=== PATIENT | male | born 1950 | race Caucasian/White ===

== ENCOUNTER → 2016-12-11 | Outpatient (CLI) | payer OTHER ==
[~2016-12-11] VITALS: Ht 177.8 cm; Wt 85.8 kg
[~2016-12-11] MED LIST: CIPROFLOXACIN500 M1 PO; FLAGYL500 MG PO; FLOMAX0.4 MG PO; LYRICA 50 MG50 MG PO; MORPHINE SULFAT15 M3 PO
--- NOTE | ~2016-12-11 | HPC ---
[facility] [place] [address] PAIN MANAGEMENT CONSULTATION Name: IRMAMaryROHIT GERMAINE Room #: REG [facility] ScottieAlvaroÁngel#: [id number] Admission: 12/11/16 Attend Phys: Ghulam Everett DO Discharge: Date of : 50 Report #: [id number] THIS REPORT FOR: //name// CC: Jw Adamson DATE OF SERVICE: 12/11/2016 REFERRING PHYSICIAN: Dr. Darryl Phillips. CHIEF COMPLAINT: Left foot pain. HISTORY OF PRESENT ILLNESS: As you know, the patient is a 66-year-old male with longstanding history of left foot pain. The pain began after surgery at the L5-S1 level leading to footdrop. He indicates pain is at a level 6/10, daily average of 6/10, worst pain has been is 10/10. The patient has plans for EMG but has not undergone the procedure. He states pain is exacerbated with standing for any length of time, improves with rest and relaxation. The patient has been referred to our service to discuss options for treatment and to provide suggestions for therapy to his referring surgeon. He indicates no specific injury or trauma that he has had but did note that his pain was not present prior to surgery and present directly afterwards. He has been referred to our service to discuss options for treatment and provide suggestions for therapy to his referring surgeon. PAST MEDICAL HISTORY: 1. Basal cell carcinoma. 2. Benign prostatic hypertrophy. 3. Chronic intractable leg pain. PAST SURGICAL HISTORY: 1. Left hip replacement in 2000. 2. Herniorrhaphy. 3. Lumbar spine surgery. SOCIAL HISTORY: The patient denies tobacco, alcohol, IV or illicit drug use. He is an employee of a [employer] but has been in and out of work due to ongoing pain issues over the past 3 months. He is accompanied by his and son who were present in the room today. REVIEW OF SYSTEMS: Positive for decrease in appetite, wearing corrective eyewear, hearing loss with tinnitus, earaches with drainage, shortness of breath, changes in bowel movements, frequent urination, nocturia, dysuria, kidney stones, numbness and tingling sensations, nervousness, depression and [facility] [address] [place] [address] PAIN MANAGEMENT CONSULTATION Name: GABOCHANDANROHIT GERMAINE Room #: [facility]#: [id number] Admission: 12/11/16 Attend Phys: Ghulam Everett DO Discharge: Date of : 50 Report #: [id number] insomnia. All other review of systems negative per 12-point review of systems other than those listed in history of present illness. Pain impact score 56/70 indicating severe interference of daily activities secondary to pain. ALLERGIES: No known drug allergies. CURRENT MEDICATIONS: 0.4 mg once a day, pregabalin 50 mg twice a day and MSIR 15 mg 3 times a day. IMAGING DATA: No imaging available. PHYSICAL EXAMINATION: VITAL SIGNS: Blood pressure 116/77, pulse is 84, respiratory rate 14 and unlabored. The patient is 97% on room air, height 5 feet 10 inches tall, weight 189.2 pounds and BMI calculated 27.1. GENERAL: Well developed, well nourished and well hydrated 66-year-old male. He appears in no acute distress. He appears stated age, placing current pain score 6/10. HEENT: Normocephalic and atraumatic. Pupils equal, round and reactive to light. Extraocular muscles are intact. Sclerae nonicteric without injection. NEUROLOGICAL: Cranial nerves 2 through 12 grossly intact. Speech is fluent. The patient deemed a fair historian. LUNGS: Clear. No wheeze, rhonchi or rales. CARDIOVASCULAR: Regular. No appreciable gallop or rub. ABDOMEN: Soft, nontender and nondistended. Normoactive bowel sounds. EXTREMITIES: Show no clubbing, no cyanosis and no edema. MUSCULOSKELETAL: There is noted footdrop on the left when compared to the right. Strength is barely noticeable with plantar flexion, dorsiflexion of the left foot when compared to the right. Gait is antalgic favoring left lower extremity over right. ASSESSMENT: 1. Left footdrop secondary to a surgical complication. 2. Lumbar radicular symptoms. 3. Chronic intractable pain. PLAN: 1. The patient has been referred to our service by his surgery team for evaluation for left footdrop and ongoing neuropathic pain. It appears that the patient has suffered some type of nerve injury leading to the footdrop symptoms. The patient indicates that he was doing well prior to surgery. After surgery, he experienced footdrop and increasing neuropathic pain. There has been no imaging according to the patient since the surgery. He has been referred to our clinic without imaging studies, so it is difficult for us to determine the [address] [address] PAIN MANAGEMENT CONSULTATION Name: ROHIT BILLINGSLEY SR Room #: ISMA Rivera#: [id number] Admission: 12/11/16 Attend Phys: Ghulam Everett DO Discharge: Date of : 50 Report #: [id number] source of the pain he is experiencing from a neuropathic standpoint and the cause of the footdrop. I advised the patient that further imaging will be necessary. I have advised the patient an MRI of the lumbar spine will be needed. We will be sending the patient for the MRI with and without contrast to be done this next week for review of the findings upon return visit. 2. I have provided the patient a prescription for BUN and creatinine. This will be required before the MRI due to the use of contrast material and the patient's advanced age. The patient will undergo the lab draw before the MRI to confirm BUN and creatinine before initiation of the imaging study. 3. We would recommend the initiation of a neuropathic pain medication. We will give the patient Gralise pack. He will start at 300 mg and escalate the dose as directed in the pack. Once he reaches an efficacious level, he is to stabilize with that dose without further escalation. We will start the titration pack today. Once he is stable on the dose, we will be returning his care to his Surgery team for continuation of this therapy. 4. We will see the patient back in followup visit hopefully next week with the MRI completed. We have taken the liberty of contacting the [facility] technical cable jointer and I had a long discussion with the color laboratory technician today and ways that we can have the patient undergo the imaging study where he is reversed in the MRI system so that he can have his head sticking out of the gantry as the patient reports some claustrophobic issues. The patient will need only 24 minutes and 10 seconds of time easily tolerable. We do not sedate the patient's for MRIs. If he requires sedation, he will need to discuss this with his surgeon and have him admitted to the hospital of the surgeon's discretion and undergo MRI with anesthesia. He will need to contact his surgeon if he wishes to do that type of imaging study. 5. We will wait EMG findings. This is going to be required as part of the evaluation. Once the EMG is completed, we can also provide some information about the source of the patient's drop foot whether or not this is going to be something that will be recoverable . 6. We wish to thank you for the opportunity to see this patient in consultation. We will be providing suggestions for treatment and will provide the MRI requested for further evaluation to assist in your ongoing care. Again, we wish to thank you for the opportunity for us to work workweek review in regards to this patient and his ongoing condition. Once we have determined the source, we will be providing suggestions for further treatment. By: [id number] [id number] Ghulma Everett DO /viv
[2016-12-11 10:51] VITALS: BP 116/77
== END | disposition home or self-care (01) ==
LOC: PAIN 07:12
DX: M79.672 Pain in left foot (principal); N40.0 Benign prostatic hyperplasia without lower urinary tract symptoms; G89.29 Other chronic pain; Z98.890 Other specified postprocedural states; F32.9 Major depressive disorder, single episode, unspecified; M54.16 Radiculopathy, lumbar region

== ENCOUNTER → 2016-12-25 | Outpatient (CLI) | payer OTHER ==
[~2016-12-25] VITALS: Ht 177.8 cm; Wt 89.2 kg
[~2016-12-25] MED LIST changes: +GRALISE600 MG PO; +HYDROCODON-ACE1 EAC8 PO
--- NOTE | ~2016-12-25 | HPC ---
[facility] [place] [address] PAIN MANAGEMENT CONSULTATION Name: ROHIT BILLINGSLEY Room #: REG [facility] Miguel#: [id number] Admission: 12/25/16 Attend Phys: Ghulam Everett DO Discharge: Date of : 50 Report #: [id number] THIS REPORT FOR: //name// CC: Jw Everett DATE OF SERVICE: 12/25/2016 CHIEF COMPLAINT: Left foot pain. HISTORY OF PRESENT ILLNESS: As you know, the patient is a 66-year-old male with longstanding history of left foot pain. The patient states the pain began directly after surgery at the L5-S1 level leading to this left foot drop in neuropathic symptoms. At our initial visit, the patient was placing pain score 6/10, daily average of 6/10, worst pain has been is 10/10. The patient was referred to our service by his surgeon, Dr. Tashi Taveras for evaluation. We saw the patient in consultation per his request on 12/11/2016. We subsequently advised the patient to undergo MRI of the lumbar spine to determine if the source of symptoms is change in the lumbar region or whether or not injury to the nerve was sustained or this is a residual neuropathic pain from unknown source. The patient was sent for MRI, but could not undergo the imaging study without "being put completely to sleep to undergo this horrific imaging study." The patient was provided Xanax therapy, but did not wish to initiate the MRI with this medication and did not undergo the procedure. We did start him on gabapentin in the form of Gralise at last visit, he returns to discuss efficacy. ALLERGIES: No known drug allergies. CURRENT MEDICATIONS: Tamsulosin 0.4 mg once a day, Gralise 1800 mg p.o. at bedtime. SOCIAL HISTORY: The patient denies tobacco, alcohol, IV or illicit drug use. He is an employee at a [employer] company, but has been out of work due to ongoing pain issues over the last 3 months. He is unaccompanied today. IMAGING: No new imaging available. PHYSICAL EXAMINATION: VITAL SIGNS: Blood pressure 128/64, pulse 80, respiratory rate 16 and unlabored. The patient is 98% on room air, height 5 feet 10 inches tall, weight 196.6 pounds, BMI calculated at 28.2. GENERAL: Well-developed, well-nourished, well-hydrated 66-year-old male who appears his stated age. He is placing current pain score at 2-7/10. HEENT: Normocephalic, atraumatic. Pupils equal, round, reactive to light. Extraocular muscles are intact. Sclerae nonicteric without injection. [address] [address] PAIN MANAGEMENT CONSULTATION Name: ROHIT BILLINGSLEY Room #: [facility] [id number] Admission: 12/25/16 Attend Phys: Ghulam Everett DO Discharge: Date of : 50 Report #: [id number] NEUROLOGIC: Cranial nerves 2-12 grossly intact. Speech is fluent. EXTREMITIES: Show no clubbing, no cyanosis, no edema. MUSCULOSKELETAL: The patient has noted foot drop on the left when compared to the right. Strength is only noted with a little bit of plantar flexion, dorsiflexion and extensor hallucis weakness noted. Gait antalgic favoring left lower extremity over right. There is no indication of complex regional pain syndrome. ASSESSMENT: 1. Left foot drop. 2. Left lower extremity neuropathy. 3. Chronic intractable pain. PLAN: 1. The patient has been referred to our service by his surgeon, Dr. Tashi Taveras, for evaluation. We have seen the patient in consultation now twice. He has left foot drop and this needs to be further evaluated by his surgeon. We attempted to have the patient undergo MRI, but he was unable to do so as he needs to be "completely sedated and asleep" to undergo the procedure. We do not offer this option. We did contact the MRI group. They were able to place the patient in reverse position with his head and chest outside of the machine and yet with this simple alteration, the patient could not undergo the procedure. Without further information we can offer no suggestions for treatment options. He does have an EMG planned for later this month. He can follow up with his surgeon in regards to the findings of that EMG. At this point, we have tried neuropathic medication in the form of Gralise, long acting form of gabapentin. He has been on Lyrica, but did not notice improvement. In fact, he has noted no improvement with either of these medications nor has he noted improvement with any other medication. At this point, we have nothing more to offer the patient from a standpoint of treatment. We recommend that he return to see Dr. Taveras, his surgeon for further evaluation and further treatment options. 2. We wish to thank Dr. Taveras for the opportunity to see the patient in consultation. Unfortunately, at this time, we cannot offer much in the way of an opinion for treatment option as we do not know the source of the patient's foot drop and ongoing pain issues. If a nerve injury has occurred, we recommend that treatments be done from a neuropathic standpoint. These can be handled through your clinic. If the foot drop is due to unknown origin, you could consider a spinal cord stimulator treatment for neuropathic symptoms, though this would provide no improvement in the foot drop on the left side. One could also look towards the lumbar region to determine if any pathology exists that may be the source of the patient's foot drop and neuropathic symptoms. We will defer to the surgeon who performed the surgery to determine the source of the patient's symptoms. 3. At this point, we have advised the patient to wean off of the Gralise. Apparently, it is not working. Recommend the patient reduce the dosing in a stepwise fashion from 1800 mg back down to 0. He has noted no improvement with [address] [address] PAIN MANAGEMENT CONSULTATION Name: ROHIT BILLINGSLEY [facility] [id number] Admission: 12/25/16 Attend Phys: Ghulam Everett DO Discharge: Date of : 50 Report #: [id number] any of the neuropathic pain medications provided to date. These are only suggestions for treatment options. We have adjusted his medications and tried to control his symptoms. He has been unable or unwilling to undergo imaging studies, so we really have nothing more to offer the patient. We will be returning his care to Dr. Taveras and we wish him luck in gaining improvement in his function of his left lower extremity and improving his neuropathic pain. 4. We wish to thank Dr. Taveras for the referral of patient to our clinic. We will be returning his care to your capable hands. We wish him luck and we appreciate the referral. It is unfortunate we were unable to provide this patient with improvement in symptoms. Again, we wish to thank you for the opportunity to participate in his care. By: [id number] Ghulam Everett DO /nt
[2016-12-25 10:49] VITALS: BP 128/64
== END | disposition home or self-care (01) ==
LOC: PAIN 12-18 08:13
DX: G62.9 Polyneuropathy, unspecified (principal); G89.29 Other chronic pain

== ENCOUNTER → 2017-01-01 | Outpatient (CLI) | payer OTHER ==
[~2017-01-01] VITALS: Ht 177.8 cm; Wt 88.5 kg
--- NOTE | ~2017-01-01 | HPC ---
[facility] [place] [place] [address] PAIN MANAGEMENT CONSULTATION Name: ROHIT BILLINGSLEY SR Room #: REG [facility] Miguel#: [id number] Admission: 01/01/17 Attend Phys: Ghulam Everett DO Discharge: Date of : 50 Report #: [id number] THIS REPORT FOR: //name// CC: Jw Vazquez DO DATE OF SERVICE: 01/01/2017 CHIEF COMPLAINT: Left lower extremity pain with paresthesias. HISTORY OF PRESENT ILLNESS: As you know, the patient is a 66-year-old male who has ongoing left lower extremity pain, paresthesias and foot drop after surgery to address lumbar radicular symptoms. The patient indicates he was experiencing no foot drop and no significant pain in the left lower extremity until after surgery. I have been tried to be in contact with the patient's surgeon, but have yet to receive any information back in regards to if there was a surgical issue or whether or not the symptoms preexisted. I cannot confirm nor deny what the patient is indicating. He returns today for the third visit in less than 3 weeks where he indicates he has undergone an EMG of the left lower extremity, but yet the findings were not provided to him. He returns today stating that he believes the Gralise that we started the patient on in the past was effective as we began to wean him down over the last week and half because he indicated no improvement in symptoms. He got down to 1200 mg at night and noted his pain intensified, he went back up to 1800 mg dosing, and is returning for refills of the medication. He is also requesting direction in regards to the EMG findings. ALLERGIES: No known drug allergies. CURRENT MEDICATIONS: Tamsulosin 0.4 mg once a day and Gralise 1800 mg at night. SOCIAL HISTORY: The patient denies tobacco, alcohol, IV or illicit drug use. He is unaccompanied today. IMAGING: No new imaging available. EMG of the lower extremities, (unavailable). PHYSICAL EXAMINATION: VITAL SIGNS: Blood pressure 117/69, pulse 60, respiratory rate 16 and unlabored, the patient is 97% on room air, height 5 feet 10 inches tall, weight 195 pounds, and BMI calculated 28. GENERAL: Well-developed, well-nourished, well-hydrated 66-year-old male, appears his stated age, he is in no acute distress, he is rating pain no greater than 3/10. [place] [address] PAIN MANAGEMENT CONSULTATION Name: ROHIT BILLINGSLEY Room #: [facility]#: [id number] Admission: 01/01/17 Attend Phys: Ghulam Everett DO Discharge: Date of : 50 Report #: [id number] HEENT: Normocephalic, atraumatic. Pupils are equal, round, and reactive to light. EXTREMITIES: Show no clubbing, no cyanosis, and no edema. MUSCULOSKELETAL: The patient has a foot drop on the left when compared to the right. Difficulty with both plantar flexion and dorsiflexion of the foot. Extensor hallucis longus weakness is also noted on the left when compared to the right. Gait is antalgic favoring left lower extremity over right. Temperature is equal and symmetrical when comparing the plantar surface of the foot bilaterally and dorsum of the foot bilaterally. No concern of changes significant for complex regional pain syndrome. ASSESSMENT: 1. Left foot drop. 2. Left lower extremity neuropathy. 3. Chronic intractable pain. PLAN: 1. The patient has returned today in followup visit indicating that he has recently undergone an EMG of the left lower extremity, this is not available to us, we have taken the liberty of contacting the referring physician, we have contacted the patient's surgeon and the precipitate washer who performed the study, none of which have been willing to provide us this information. This places us in an extremely difficult position as we cannot advise the patient the direction of treatment as we have suboptimal amount of information. I did indicate to the patient today, we will contact him tomorrow if we did not receive the information. This dictation was delayed 24 hours as we are awaiting response from the different physician teams, I have taken the liberty of contacting the patient's surgeon and advised them that the surgeon needs to contact the patient in regards to the findings and to discuss further treatment options as we can no longer be involved in the patient's treatment as we do not have the information to be able to do so. 2. The patient will continue on Gralise therapy 1800 mg dose, he was provided a prescription of the medication today, I did advise the patient this medication can be somewhat costly, but if his pain is controlled with the medication and he feels it is beneficial, he can continue the therapy. We have adjusted these medications for neuropathic symptom control, he was reporting good analgesic with its use. We recommend you continue this medication, the patient can return to his PCP for continuation of this therapy as it does not require our expertise. 3. We will be discharging the patient from our clinic back to his primary care physician. We are in a situation where we cannot receive the requested information so that we can help direct the patient, there is no need for us to be involved in the patient's case given this situation. We will be discharging the patient back to the referring physician, Dr. Jerad Vazquez for continued medical therapy with the Gralise. We have no further suggestions for treatment as we have been advised we cannot receive information that would help direct the [facility] [address] [place] [address] PAIN MANAGEMENT CONSULTATION Name: ROHIT BILLINGSLEY Room #: REG [facility] Oksana.#: [id number] Admission: 01/01/17 Attend Phys: Ghulam Everett DO Discharge: Date of : 50 Report #: [id number] care more effectively. We will be discharging the patient from our clinic with return to Dr. Vazquez's clinic for further evaluation and treatment. We have contacted the surgery team who has received the EMG, but would not provide that to us indicating that they need to contact the patient directly and have a conversation with the patient about the findings. By: [id number] Ghulam Everett DO /nt
[2017-01-01 13:00] VITALS: BP 117/69
== END ==
LOC: PAIN 06:37
DX: M21.372 Foot drop, left foot (principal); G62.9 Polyneuropathy, unspecified; G89.29 Other chronic pain; Z79.899 Other long term (current) drug therapy